=== PATIENT | male | born 1975 | race Caucasian/White ===

== ENCOUNTER → 2025-09-26 06:31 | Outpatient (REF) | payer BC, SELFPAY | LOC: DHSLP 06:31 | PROVIDERS: ATTENDING PHYSICIAN Nurse Practitioner Family | DX: G47.33 Obstructive sleep apnea (adult) (pediatric) (principal) | CPT/HCPCS: 95800 ==

== ENCOUNTER 2025-09-28 06:22 | Day surgery (SDC) | payer BC, SELFPAY | END 2025-09-28 08:39 | disposition home or self-care (01) | LOC: GI 06:22 | PROVIDERS: ATTENDING PHYSICIAN Internal Medicine | DX: Z12.11 Encounter for screening for malignant neoplasm of colon (principal); K57.30 Diverticulosis of large intestine without perforation or abscess without bleeding; D12.3 Benign neoplasm of transverse colon; K63.5 Polyp of colon | CPT/HCPCS: 45385; 45380; 88305 ==